=== PATIENT | female | born 1990 | race American Indian/Alaskan Native ===

== ENCOUNTER 2017-06-07 00:25 | Emergency (ER) | payer SELFPAY ==
[2017-06-07] MEDS ORDERED: TYLENOL ONE (01:49)
[2017-06-07] MEDS ORDERED: TYLENOL PO ONE (01:50)
[2017-06-07] MEDS ORDERED: VALIUM ONE (05:38)
[2017-06-07] MEDS ORDERED: XYLOCAINE 2% INFILTRATI ONE ×2 (05:43→05:49)
[2017-06-07] MEDS ORDERED: VALIUM IV ONE (05:47)
--- NOTE | 2017-06-07 06:05 | Emergency Department Report ---
HPI - General Chief Complaint: Skin/Abscess/Foreign Body Time Seen by Provider: 06/07/17 05:07 - HPI HPI: This is a 27-year-old female presents to the ED complaining of left foot at pain and swelling for the past 3 days. She denies fever she denies chills. She states pain with sitting due to swelling and pain of the buttock She denies any other problems. ED Past Medical Hx - Past Medical History Previous Medical History?: No - Surgical History Past Surgical History?: No - Social History Smoking Status: Never Smoker Substance Use Type: None - Medications Home Medications: Home Medications Medication Instructions Recorded Confirmed Last Taken Type Acetaminophen/Codeine [Tylenol 1 tab PO Q6H PRN #12 tab 06/07/17 Unknown Rx /Codeine # 3 tab] Ibuprofen [Motrin] 800 mg PO Q8HR PRN #40 tablet 06/07/17 Unknown Rx Sulfamethoxazole/Trimethoprim 1 each PO BID #14 tablet 06/07/17 Unknown Rx [Bactrim DS TAB] ED Review of Systems ROS: Stated complaint: ABSCESS Other details as noted in HPI Constitutional: denies: chills, fever Eyes: denies: eye pain, eye discharge, vision change ENT: denies: ear pain, throat pain Respiratory: denies: cough, shortness of breath, wheezing Cardiovascular: denies: chest pain, palpitations Endocrine: no symptoms reported Gastrointestinal: denies: abdominal pain, nausea, diarrhea Genitourinary: denies: urgency, dysuria, discharge Musculoskeletal: denies: back pain, joint swelling, arthralgia Skin: denies: rash, lesions Neurological: denies: headache, weakness, paresthesias Psychiatric: denies: anxiety, depression Hematological/Lymphatic: denies: easy bleeding, easy bruising Physical Exam - Physical Exam Vital Signs: Vital Signs 06/07/17 01:34 Temperature 98.8 F Pulse Rate 83 Respiratory 18 Rate Blood Pressure 113/71 [Right] O2 Sat by Pulse 100 Oximetry Physical Exam: GENERAL: Alert and oriented x3, no apparent distress, Normal Gait, atraumatic. HEAD: Head is normocephalic and a-traumatic. NECK: Supple. Non edematous, No carotid bruits. No lymphadenopathy or thyromegaly. No C-spine tenderness LUNGS: Symetrical with respiration, No wheezing, no rales or crackles, CTAB. HEART: S1, S2 present, regular rate and rhythm without murmur, no rubs, no gallops. Non tender to palpation ABDOMEN: No organomegaly was noted,Positive bowel sounds, soft, and non- distended. . BUTTOCK: 4-5 cm, fluctuant, erythematous, swelling abscess. Tender to palpation. No active drainage. No emergency seen PSYCHIATRIC: Mood is congruent with affect, denies suicidal or homicidal ideations. SKIN: Warm and dry, No lesions, No ulceration or induration present. ED Course Vital Signs 06/07/17 01:34 Temperature 98.8 F Pulse Rate 83 Respiratory 18 Rate Blood Pressure 113/71 [Right] O2 Sat by Pulse 100 Oximetry - I & D Left Medial Buttocks Type of Procedure: Simple Site: Left buttock Blade Size: 11 I & D Procedure: betadine prep, sterile drapes applied, sterile dressing applied , gauze wick placed ED Medical Decision Making - Medical Decision Making 27-year-old female presents to the left buttock abscess She received Valium in ED Patient positioned appropriately, 15cc lidocaine with/without epinephrine was used as a local anesthetic. #11 blade scalpal used for single incision. Additional local anesthetic injected into surrounding viable tissue prior to blunt dissection of loculated adhesions. Copius drainage of pus . Wound packed with iodoform gauze. Procedure tolerated without complications. Wound dressed with sterile 4x4 guaze and paper tape. Pt tolerated procedure well. Discussed the patient to return a 3 days for wound recheck and gauze removal. Discussed to keep area dry. Discussed change dressing every day. Critical care attestation.: If time is entered above; I have spent that time in minutes in the direct care of this critically ill patient, excluding procedure time. ED Disposition Clinical Impression: Left buttock abscess Disposition: DC-01 TO HOME OR SELFCARE Is pt being admited?: No Does the pt Need Aspirin: No Condition: Stable Instructions: Acute Wound Care (ED), Abscess (ED), Incision and Drainage (ED) Additional Instructions: Follow-up with primary care physician. Return to ED in 3 days for wound check Take your medication as prescribed Prescriptions: Acetaminophen/Codeine [Tylenol /Codeine # 3 tab] 1 tab PO Q6H PRN #12 tab PRN Reason: Pain Ibuprofen [Motrin] 800 mg PO Q8HR PRN #40 tablet PRN Reason: Pain Sulfamethoxazole/Trimethoprim [Bactrim DS TAB] 1 each PO BID #14 tablet Referrals: PRIMARY CARE, [Primary Care Provider] - 3-5 Days [facility] [Outside] - 3-5 Days [facility] [Outside] - 3-5 Days [facility] [Outside] - 3-5 Days Forms: Accompanied Note, Work/School Release Form(ED)
[2017-06-07 07:16] VITALS: BP 108/74
== END 2017-06-07 07:13 | disposition home or self-care (01) ==
LOC: ED 00:25
DX: L02.31 Cutaneous abscess of buttock (principal)
CPT/HCPCS: 10060; 96374; 99283; J3360

== ENCOUNTER 2017-06-10 22:27 | Emergency (ER) | payer SELFPAY ==
[2017-06-10] MEDS ORDERED: MOTRIN ONE (23:45)
--- NOTE | 2017-06-10 23:52 | Emergency Department Report ---
ED Recheck HPI - General Chief Complaint: Laceration/Recheck/Suture Stated Complaint: FOLLOW UP VISIT/WOUND CHECK Time Seen by Provider: 06/10/17 23:52 Source: patient, family Mode of arrival: Ambulatory Limitations: No Limitations - History of Present Illness Initial Comments: Patient here with her family to have wound recheck and possible removal of packing from buttocks. She was here on 07/04/2017 and had packing placed abscess. Patient was started on Tylenol No. 3, ibuprofen and Bactrim DS which she says she just started the Bactrim yesterday. Patient is a smoker. She reports pain to side at 9 out of 10 and sore only with sitting or touching. Denies any fever or chills. Denies any nausea or vomiting. Patient with surgical history of appendectomy and no medical history. Last menstrual period was 06/03/2017 Complaint: wound re-check Onset/Timin -: days(s) Initial Visit For: abscess Returns Today for: wound recheck Symptoms Since Prior Visit: no new symptoms, improved Context: planned re-check Associated Symptoms: none Treatments Prior to Arrival: Given Antibiotics on, Given Pain Meds on - Related Data Previous Rx's Medication Instructions Recorded Last Taken Type Acetaminophen/Codeine [Tylenol 1 tab PO Q6H PRN #12 tab 06/07/17 Unknown Rx /Codeine # 3 tab] Ibuprofen [Motrin] 800 mg PO Q8HR PRN #40 tablet 06/07/17 Unknown Rx Sulfamethoxazole/Trimethoprim 1 each PO BID #14 tablet 06/07/17 Unknown Rx [Bactrim DS TAB] Allergies Allergy/AdvReac Type Severity Reaction Status Date / Time No Known Allergies Allergy Verified 06/07/17 01:49 ED Review of Systems ROS: Stated complaint: FOLLOW UP VISIT/WOUND CHECK Other details as noted in HPI Comment: All other systems reviewed and negative Constitutional: denies: chills, fever Eyes: denies: eye pain Respiratory: no symptoms reported Cardiovascular: denies: chest pain, palpitations, edema, syncope Gastrointestinal: denies: abdominal pain, nausea, vomiting, diarrhea Genitourinary: denies: urgency, dysuria, frequency, hematuria, discharge Musculoskeletal: denies: back pain, joint swelling, arthralgia, myalgia Skin: other (wound recheck and possible packing removal). denies: rash Neurological: denies: headache, weakness ED Past Medical Hx - Past Medical History Previous Medical History?: No - Surgical History Hx Appendectomy: Yes - Family History Family history: no significant - Social History Smoking Status: Never Smoker Substance Use Type: None Other Social History: - Medications Home Medications: Home Medications Medication Instructions Recorded Confirmed Last Taken Type Acetaminophen/Codeine [Tylenol 1 tab PO Q6H PRN #12 tab 06/07/17 Unknown Rx /Codeine # 3 tab] Ibuprofen [Motrin] 800 mg PO Q8HR PRN #40 tablet 06/07/17 Unknown Rx Sulfamethoxazole/Trimethoprim 1 each PO BID #14 tablet 06/07/17 Unknown Rx [Bactrim DS TAB] ED Physical Exam - General Limitations: No Limitations General appearance: alert, in no apparent distress - Head Head exam: Present: atraumatic, normocephalic, normal inspection - ENT ENT exam: Present: normal exam, normal orophraynx, mucous membranes moist - Neck Neck exam: Present: normal inspection, full ROM. Absent: tenderness, meningismus, lymphadenopathy - Respiratory Respiratory exam: Present: normal lung sounds bilaterally. Absent: respiratory distress, chest wall tenderness - Cardiovascular Cardiovascular Exam: Present: regular rate, normal rhythm, normal heart sounds - GI/Abdominal GI/Abdominal exam: Present: soft, normal bowel sounds. Absent: distended, tenderness, guarding, rebound, rigid - Extremities Exam Extremities exam: Present: normal inspection, full ROM, normal capillary refill. Absent: tenderness, pedal edema, joint swelling, calf tenderness - Neurological Exam Neurological exam: Present: alert, oriented X3, normal gait, reflexes normal. Absent: motor sensory deficit - Psychiatric Psychiatric exam: Present: normal affect, normal mood - Skin Skin exam: Present: warm, dry, intact, normal color, other (patient with abscess to buttocks with packing in place. No erythema or induration area.) - Expanded Skin Exam Expanded Type of lesion: Present: abscess Distribution of rash: other (buttocks) Description of rash: Present: tenderness, discharge (scant bloody drainage noted after packing removed). Absent: erythematous, swelling, petechial, purpuic, indurated ED Course Vital Signs 06/10/17 22:34 Temperature 98.8 F Pulse Rate 84 Respiratory 18 Rate Blood Pressure 105/75 O2 Sat by Pulse 98 Oximetry - Reevaluation(s) Reevaluation #1: 06/11/17 00:31 She given Motrin 800 mg prior to packing removal. Packing removed from buttocks. Area flushed with normal saline, cleansed with iodine and normal saline and dry sterile dressing placed inside. ED Recheck MDM - Medical Decision Making ED course: Patient status post incision and drainage to buttocks would pack in. He is here today for planned recheck. Packing removed from abscess site and wound is clean. No induration or erythema surroundind wound. Patient given Motrin 800 mg prior to procedure at her request. Packing removal from site. Noted scan bleeding from seat area. Area flushed with normal saline, cleansed with iodine and saline and dry sterile dressing placed inside. He shouldn't tolerated packing removal well. She is a smoker and I discussed with her that she will need to refrain from smoking and because the skin delayed wound healing .she voiced understanding. I also discussed with her that she needs to follow up with her primary care physician in 3-5 days and if she does not have one she can follow-up at [facility]. Diagnostic/lab: No need for any diagnostics her labs. Assessment/plan: 1: Encounter for packing removal from buttock-packing removed and area cleansed and sterile dry dressing placed inside. Patient instructed to continue with her Bactrim DS she started it yesterday and was placed on it for 7 days. Keep affected area clean and dry 2: Nicotine abuse :smoking cessation encouraged and teaching given regarding in the amount effect on smoking overall especially with wound. Patient voiced understanding. I discussed the patient that if area becomes red, if she develops fever, increasing drainage to return to the emergency room otherwise she will need to follow up with primary care physician in 3-5 days and if she does not have one she will need follow-up at [facility]. Critical care attestation.: If time is entered above; I have spent that time in minutes in the direct care of this critically ill patient, excluding procedure time. ED Disposition Clinical Impression: Encounter for smoking cessation counseling, Abscess packing removal, Nicotine abuse Disposition: DC-01 TO HOME OR SELFCARE Is pt being admited?: No Does the pt Need Aspirin: No Condition: Stable Instructions: How to Stop Smoking (ED), Abscess (ED) Additional Instructions: Please increase her fluid intake See discharge informmation on how to stop smoking. Take antibiotic as instricted Referrals: PRIMARY CARE, [Primary Care Provider] - 3-5 Days [facility] [Outside] - 3-5 Days Forms: Accompanied Note, Work/School Release Form(ED)
[2017-06-11] MEDS ORDERED: MOTRIN PO ONE (00:26)
[2017-06-11 00:54] VITALS: BP 103/67
== END 2017-06-11 00:54 | disposition home or self-care (01) ==
LOC: ED 22:27
DX: Z71.6 Tobacco abuse counseling (principal); F17.200 Nicotine dependence, unspecified, uncomplicated
CPT/HCPCS: 99282

== ENCOUNTER 2018-01-31 17:56 | Emergency (ER) | payer BC ==
[2018-01-31] MEDS ORDERED: TORADOL IV ONE (20:44)
[2018-01-31] MEDS ORDERED: NORCO 7.5/325 PO ONE (20:44)
[2018-01-31] MEDS ORDERED: NACL 0.9% 1000 ML 1,000 ML IV ONE (20:44)
[2018-01-31] MEDS ORDERED: ZOFRAN IV ONE (20:44)
[2018-01-31 21:06] LABS: Basophils % (Auto) 0.3 % (0.0-1.8); Eosinophils # (Auto) 0.2 K/mm3 (0.0-0.4); Eosinophils % (Auto) 1.9 % (0.0-4.3); Hematocrit 34.2 % (30.3-42.9); Hemoglobin 10.6 gm/dl (10.1-14.3); Lymphocytes # (Auto) 2.9 K/mm3 (1.2-5.4); Lymphocytes % (Auto) 32.8 % (13.4-35.0); Mean Corpuscular HGB Conc 31 % (30-34); Monocytes % (Auto) 11.1 % (0.0-7.3); Platelet Count 209 K/mm3 (140-440); Red Blood Count 5.15 M/mm3 (3.65-5.03); Red Cell Distribution Width 14.9 % (13.2-15.2)
[2018-01-31 21:09] LABS: Mean Corpuscular Hemoglobin 21 pg (28-32); Mean Corpuscular Volume 66 fl (79-97)
[2018-01-31 21:17] LABS: BUN/Creatinine Ratio 25; Blood Urea Nitrogen 15 mg/dL (7-17); Calcium 8.9 mg/dL (8.4-10.2); Hemolysis Index 1
[2018-01-31 22:50] LABS: HCG Qualitative,Urine Negative (Negative)
[2018-01-31 22:51] LABS: Bilirubin,Urine NEG (Negative); Blood,Urine LG (Negative); Color,Urine Yellow (Yellow); Mucus,Urine FEW /HPF; Protein,Urine <15 mg/dL mg/dL (Negative)
--- NOTE | 2018-01-31 23:03 | Emergency Department Report ---
ED Female HPI - General Chief complaint: Vaginal Bleeding Stated complaint: ENDOMETRIOSIS Time Seen by Provider: 01/31/18 20:40 Source: patient Mode of arrival: Ambulatory Limitations: No Limitations - History of Present Illness Initial comments: Patient is a 27-year-old [place] female who was diagnosed with endometriosis approximately 2 years ago who is having increasingly worse menstrual cycles for the past several months. Patient states that she has suprapubic pain that is a 10 out of 10 in severity. Patient's has heavy vaginal bleeding for the past 2 days with clots. The patient states that there is no radiation of pain to lower back as well. Patient states this is a crampy pain. Patient denies any nausea vomiting diarrhea chest pain cough shortness of breath this time. - Related Data Previous Rx's Medication Instructions Recorded Last Taken Type Acetaminophen/Codeine [Tylenol 1 tab PO Q6H PRN #12 tab 06/07/17 Unknown Rx /Codeine # 3 tab] Sulfamethoxazole/Trimethoprim 1 each PO BID #14 tablet 06/07/17 Unknown Rx [Bactrim DS TAB] Ibuprofen [Motrin 800 MG tab] 800 mg PO Q8HR PRN #20 tablet 01/31/18 Unknown Rx medroxyPROGESTERone ACETATE 10 mg PO DAILY #5 tablet 01/31/18 Unknown Rx [Provera] traMADol [Ultram] 50 mg PO Q6HR PRN #12 tablet 01/31/18 Unknown Rx Allergies Allergy/AdvReac Type Severity Reaction Status Date / Time No Known Allergies Allergy Verified 06/07/17 01:49 ED Review of Systems ROS: Stated complaint: ENDOMETRIOSIS Other details as noted in HPI Comment: All other systems reviewed and negative ED Past Medical Hx - Past Medical History Additional medical history: endometriosis - Surgical History Hx Appendectomy: Yes - Social History Smoking Status: Current Every Day Smoker Substance Use Type: Alcohol - Medications Home Medications: Home Medications Medication Instructions Recorded Confirmed Last Taken Type Acetaminophen/Codeine [Tylenol 1 tab PO Q6H PRN #12 tab 06/07/17 Unknown Rx /Codeine # 3 tab] Sulfamethoxazole/Trimethoprim 1 each PO BID #14 tablet 06/07/17 Unknown Rx [Bactrim DS TAB] Ibuprofen [Motrin 800 MG tab] 800 mg PO Q8HR PRN #20 tablet 01/31/18 Unknown Rx medroxyPROGESTERone ACETATE 10 mg PO DAILY #5 tablet 01/31/18 Unknown Rx [Provera] traMADol [Ultram] 50 mg PO Q6HR PRN #12 tablet 01/31/18 Unknown Rx ED Physical Exam - General Limitations: No Limitations General appearance: alert, in no apparent distress - Head Head exam: Present: atraumatic, normocephalic - Eye Eye exam: Present: normal appearance - ENT ENT exam: Present: mucous membranes moist - Neck Neck exam: Present: normal inspection - Respiratory Respiratory exam: Present: normal lung sounds bilaterally. Absent: respiratory distress, wheezes, rales, rhonchi - Cardiovascular Cardiovascular Exam: Present: regular rate, normal rhythm. Absent: systolic murmur, diastolic murmur, rubs, gallop - GI/Abdominal GI/Abdominal exam: Present: soft, tenderness (suprapubic tenderness), normal bowel sounds. Absent: distended, guarding, rebound - Extremities Exam Extremities exam: Present: normal inspection - Back Exam Back exam: Present: normal inspection - Neurological Exam Neurological exam: Present: alert, oriented X3 - Psychiatric Psychiatric exam: Present: normal affect, normal mood - Skin Skin exam: Present: warm, dry, intact, normal color. Absent: rash ED Course Vital Signs 01/31/18 01/31/18 18:09 22:11 Temperature 97.7 F Pulse Rate 86 Respiratory 18 16 Rate Blood Pressure 118/70 O2 Sat by Pulse 100 Oximetry ED Medical Decision Making - Lab Data Result diagrams: 01/31/18 20:50 01/31/18 20:50 Lab Results 01/31/18 01/31/18 01/31/18 Range/Units 20:50 20:50 21:16 WBC 8.8 (4.5-11.0) K/mm3 RBC 5.15 H (3.65-5.03) M/mm3 Hgb 10.6 (10.1-14.3) gm/dl Hct 34.2 (30.3-42.9) % MCV 66 L (79-97) fl MCH 21 L (28-32) pg MCHC 31 (30-34) % RDW 14.9 (13.2-15.2) % Plt Count 209 (140-440) K/mm3 Lymph % (Auto) 32.8 (13.4-35.0) % Randall % (Auto) 11.1 H (0.0-7.3) % Eos % (Auto) 1.9 (0.0-4.3) % Baso % (Auto) 0.3 (0.0-1.8) % Lymph # 2.9 (1.2-5.4) K/mm3 Randall # 1.0 H (0.0-0.8) K/mm3 Eos # 0.2 (0.0-0.4) K/mm3 Baso # 0.0 (0.0-0.1) K/mm3 Seg Neutrophils % 53.9 (40.0-70.0) % Seg Neutrophils # 4.8 (1.8-7.7) K/mm3 Sodium 139 (137-145) mmol/L Potassium 4.0 (3.6-5.0) mmol/L Chloride 102.9 (98-107) mmol/L Carbon Dioxide 24 (22-30) mmol/L Anion Gap 16 mmol/L BUN 15 (7-17) mg/dL Creatinine 0.6 L (0.7-1.2) mg/dL Estimated GFR > 60 ml/min BUN/Creatinine Ratio 25 % Glucose 92 (65-100) mg/dL Calcium 8.9 (8.4-10.2) mg/dL Urine Color Yellow (Yellow) Urine Turbidity Clear (Clear) Urine pH 6.0 (5.0-7.0) Ur Specific [place] 1.021 (1.003-1.030) Urine Protein <15 mg/dl (Negative) mg/dL Urine Glucose (UA) Neg (Negative) mg/dL Urine Ketones Neg (Negative) mg/dL Urine Blood Lg (Negative) Urine Nitrite Neg (Negative) Ur Reducing Substances Not Reportable Urine Bilirubin Neg (Negative) Urine Ictotest Not Reportable Urine Urobilinogen 2.0 (<2.0) mg/dL Ur Leukocyte Esterase Neg (Negative) Urine WBC (Auto) 3.0 (0.0-6.0) /HPF Urine RBC (Auto) 1.0 (0.0-6.0) /HPF U Epithel Cells (Auto) 1.0 (0-13.0) /HPF Urine Mucus Few /HPF Urine HCG, Qual Negative (Negative) - Medical Decision Making Patient will be DC'd home. Patient does not recurrent tear for needing an acute blood transfusion secondary to her bleeding. Patient is hydrated and is feeling much better after fluids and pain meds. Patient be referred to a merchandising execution manager as well. Critical care attestation.: If time is entered above; I have spent that time in minutes in the direct care of this critically ill patient, excluding procedure time. ED Disposition Clinical Impression: Dysmenorrhea Disposition: - TO HOME OR SELFCARE Is pt being admited?: No Does the pt Need Aspirin: No Condition: Stable Instructions: Dysmenorrhea (ED) Prescriptions: Ibuprofen [Motrin 800 MG tab] 800 mg PO Q8HR PRN #20 tablet PRN Reason: Pain medroxyPROGESTERone ACETATE [Provera] 10 mg PO DAILY #5 tablet traMADol [Ultram] 50 mg PO Q6HR PRN #12 tablet PRN Reason: Pain Referrals: ROSSY BECERRA MD [Staff Physician] - 3-5 Days
[2018-01-31 23:18] VITALS: BP 114/78
== END 2018-01-31 23:29 | disposition home or self-care (01) ==
LOC: ED 17:56
DX: N94.6 Dysmenorrhea, unspecified (principal); F17.200 Nicotine dependence, unspecified, uncomplicated; Z90.49 Acquired absence of other specified parts of digestive tract
CPT/HCPCS: 36415; 80048; 81001; 81025; 85025; 96361; 96374; 96375; 99283; J1885; J2405; J7030